=== PATIENT | female | born 1995 | race Two or more races ===

== ENCOUNTER 2025-01-20 11:46 | Observation (INO) | payer MEDICAID, SELFPAY ==
[2025-01-20 11:53] VITALS: BP 120/75; PULSE 82
[2025-01-20 12:19] LABS: ROM Kit Lot # 57807112; ROM Swab Mixed By: HILEL; Swb Mxed in Solvent 1 min? Yes
[2025-01-20 12:20] LABS: Rupture of Fetal Membranes Negative (Negative)
[2025-01-20 12:27] VITALS: BP 120/75; PULSE 82; RESP 16; RESP 97; TEMP 36.4; O2SAT 97; BMI 34.4
--- NOTE | 2025-01-20 13:26 | ESPR_ITS ---
Documentation for date of: 01/20/25 OB Labor Progress Note Assessment and Plan Comments: Evie is a 29yo with SIUP at 35+wk presenting to L&D, referred by CNM in clinic, for vaginal leakage of fluid. She endorses that she has had similar leakage vs vaginal discharge since the start of , though it's slightly more lately. No obvious gush. Not needing a liner or pad. She notes no painful/regular ctx, no vaginal bleeding. Normal movement. Current : This has been uncomplicated, she has had regular OB care with [facility] Previous pregnancies: history of 1 PTD and 3 term svds, hx of hemorrhage x3 with transfusion, obesity, depression and DV ROS negative other than what was described above. Vitals wnl, afebrile General: well developed, well nourished, no acute distress, conversant Cardiac: normal heart rate Lungs: breathing without distress Abdomen: soft, gravid, non-tender, no rebound or guarding Extremities: no pain with palpation of calves NST: Reactive, +accels, no decels, mod sidney [place]: no regular ctx pattern Bedside ultrasound performed by Dr. Chin: SIUP with cephalic presentation, +FCA, active FM, posterior placenta, SHARON 10cm Labs: AmniSure ROM Test: Negative Assessment: Evie is a 29yo with SIUP at 35+wk with no evidence of ROM. Vitals wnl, benign exam. Reassuring status based on NST/SHARON (modified BPP). Plan: -Discussed findings and diagnosis with patient, answered all questions to her apparent satisfaction -Continue routine follow up with CNM within 1 week -Discussed return precautions at length. Specifically discussed that if she feels leakage again when she goes home, to place a panty liner or pad on and walk around. If she begins soaking into the liner/pad, she should return. Isabel Chin MD
== END 2025-01-20 13:35 | disposition home or self-care (01) ==
PROVIDERS: Admitting Provider Obstetrics & Gynecology; Visit Provider Obstetrics & Gynecology
DX: Z34.83 Encounter for supervision of other normal pregnancy, third trimester (principal); Z3A.35 35 weeks gestation of pregnancy
CPT/HCPCS: 59025; 59899; 84112

== ENCOUNTER 2025-02-15 11:38 | Inpatient (IN) | payer MEDICAID, SELFPAY ==
[2025-02-15] VITALS (84 sets, daily range): BP systolic 121–153; BP diastolic 62–92; PULSE 64–103; RESP 16–100; TEMP 36.4–37.3; O2SAT 93–100; BMI 34.4
--- NOTE | 2025-02-15 14:06 | ESHP_ITS ---
Documentation for date of: 02/15/25 OB Labor/Induct. HPI History of Present Illness Chief complaint: 29 y/o 39w 3d presents to L&D in labor at 4 cm mercedes : 5 Para: 4 Term pregnancies: 3 pregnancies: 1 Living children: 4 History of Abortions: Spontaneous and Elective: 0 History of Vaginal deliveries: 4 History of sections: No History of : No Date of last menstrual period: 05/15/25 MIKY: 02/19/25 Gestational Age (weeks): 39 Gestational Age (days): 3 Gestational age based on last menstrual period: -12 History of present illness: 29 y/o 39w 3w presents to L&D in labot at 4 cm vertex, mercedes with a bulging bag. GBS is neg. has been uncomplicated. Pt has a hx of nvdx4 no complications. EFW 3400g History of Present Dating criteria: LMP confirmed by 1st trimester US Adequate Care: Yes Ultrasounds: normal 1st trimester US and normal mid trimester US Obstetrical complications: none Medical complications: none Review of Systems Review of Systems Systems Reviewed: All systems reviewed, normal except as documented Past Medical History Surgical History SURGICAL: Negative Section Meds Home Medications and Allergies Home Medications ?Medication ?Instructions ?Recorded ?Confirmed ?Type vits no.130-ferrous fum 1 tab PO QDAY 5 02/15/25 History 27 mg iron-folic acid 800 mcg tablet ( Vitamin) Allergies Allergy/AdvReac Type Severity Reaction Status Date / Time No Known Allergies Allergy Verified 02/15/25 11:52 OB Exam Physical Exam Vital signs: Temp Pulse Resp BP Pulse Ox O2 Del Method 98.2 F 79 20 121/83 99 Room Air 02/15/25 12:36 02/15/25 12:36 02/15/25 12:36 02/15/25 12:36 02/15/25 12:26 02/15/25 11:45 Constitutional Constitutional: mild distress (Secondary to painful contractions) Routine HEENT Exam Head: Present normocephalic and atraumatic Eye: Present EOMI, PERRL and normal accommodation ENT: Present mucous membranes moist Routine Neck Exam Neck: Present full ROM Routine Respiratory Exam Respiratory: Absent respiratory distress Routine Cardiovascular Exam Cardiovascular: Present RRR Routine Abdominal Exam Abdominal: Present soft and normoactive bowel sounds Comments: Gravid Uterus EFW 3400g Routine Exam External: Present normal urethra appearance; Absent lesions Detailed Labor and Delivery Exam Dilation (cm): 4 Effacement (%): 80 Cervix position: posterior station: -2 Consistency: soft Presentation: Vertex Membranes: intact Baseline heart rate: 125 monitor accelerations: 15x15 monitor decelerations: None termite control servicer variability: Moderate (11-25) Contraction frequency (min): 3-4 Routine Extremities Exam Extremities: Present full ROM Routine Back/Spine/Pelvis Exam Back/Spine: Present full ROM Routine Skin Exam Skin: Present intact, dry and warm Routine Neurological Exam Neurological: Present alert, oriented X3 and CN II-XII intact Routine Psychiatric Exam Psychiatric: Present normal affect and normal thought process OB Results Labs 02/15/25 14:15 OB Assessment & Plan Assessment and Plan (1) Normal labor: Status: Acute (2) with 39 completed weeks gestation: Status: Acute Additional Plan Induction method: none Plan: augmentation, anticipate NVD and consult prce Additional Plan Comment: Routine admit orders Orders 2 units of pRBs on hold and PPH meds at bedside Start 2nd IV Continuous EFM
[2025-02-15 14:36] LABS: Basophils % (Auto) 0 % (0-2.5); Eosinophils % (Auto) 0 % (0-10); Hematocrit 31.5 % (36.0-46.0); Hemoglobin 10.2 g/dL (12.0-16.0); Immature Granulocytes % (Auto) 1 % (0-0); Immature Granulocytes Auto 0.03 Thou/mm3 (0.00-0.00); Lymphocytes # (Auto) 1.6 Thou/mm3 (1.0-4.8); Lymphocytes % (Auto) 24 % (10-50); Mean Corpuscular HGB Conc 32.4 g/dl (31.0-37.0); Mean Corpuscular Hemoglobin 26.6 pg (25.0-35.0); Mean Corpuscular Volume 82 fL (80-100); Monocytes # (Auto) 0.3 Thou/mm3 (0.0-0.8); Monocytes % (Auto) 5 % (0-12); Neutrophils # (Auto) 4.7 Thou/mm3 (1.8-7.7); Neutrophils % (Auto) 70 % (37-80); Nucleated Red Blood Cell % 0 /100 WBC (0); Platelet Count 142 Thou/mm3 (140-440); RDW Standard Deviation 45.1 fL (36.4-46.3); Red Blood Count 3.84 Miln/mm3 (4.00-5.20); White Blood Count 6.7 Thou/mm3 (3.6-11.0)
[2025-02-15 15:20] LABS: Syphilis Nonreactive (Nonreactive)
--- NOTE | 2025-02-15 16:01 | PD.LDPN ---
Documentation for date of: 02/15/25 OB Labor Progress Note Pain Control Pain control: tolerating well Pelvic Exam Dilation (cm): 5 Effacement (%): 80 station: 0 Amniotic membrane status: Ruptured (AROM clear fluids) Contractions Monitor mode: External Contraction frequency: 3-5 Contraction duration: 40-60 Contraction intensity: Moderate Status status: Category l Assessment and Plan Assessment: other (Labor) Plan OB labor note: continuous present management Comments: AROM performed - clear fluids If contractions space out, start pitocin per protocol Anticipate
[2025-02-15] MEDS: OXYTOCIN in NS 30 units 30 UNIT/500 ML BAG IV (16:58)
[2025-02-15] MEDS: fentaNYL CIT INJ 50 mCg/ML AMP 2ML 100 MCG IV ×2 (19:03→20:18)
--- NOTE | 2025-02-15 19:56 | PD.LDPN ---
Documentation for date of: 02/15/25 OB Labor Progress Note Pain Control Pain control: tolerating well Pelvic Exam Dilation (cm): 8.5 Effacement (%): 100 station: +1 Amniotic membrane status: Ruptured (AROM clear fluids) Contractions Monitor mode: External Contraction frequency: 2-3 Contraction duration: 40-60 Contraction phase: Contraction Contraction intensity: Strong Status status: Category l Assessment and Plan Assessment: active labor Plan OB labor note: continuous present management Comments: Pt is progressing, much more uncomfortable Anticipate
[2025-02-15] MEDS: OXYTOCIN in NS 20 units 20 UNIT/1,000 ML BAG 125 UNIT IV (20:10)
[2025-02-15] MEDS: TRANEXAMIC ACID 1,000 MG IVPB 1,000 MG/100 ML BAG 200 MG IV ×2 (20:15→21:50)
[2025-02-15] MEDS: METHYLERGONOVINE INJ 0.2 MG/ML VIAL IM (20:17)
--- NOTE | 2025-02-15 20:29 | OBDSUM_ITS ---
Data (Goss) Data Hx Section: No Maternal Blood Type: O Pos Rubella Titre: Positive RPR: Non-reactive Labs: Negative: RPR, Hepatitis B, HIV, Chlamydia, Gonorrhea and Group Beta Strep and Unknown: Herpes Type 1 and Herpes Type 2 : 5 Para: 4 Term: 3 : 1 Livin Abortions: Spontaneous & Theraputic: 0 Delivery Data (Goss) Labor Data Initiation of labor: Augmentation Induction/Augmentation Agent: Pitocin and Artificial ROM ROM date: 02/15/25 ROM time: 16:00 Amniotic membrane rupture type: Artificial Amniotic fluid description: Clear Delivery Data EDC: 02/19/25 EDC calculated by:: LMP/early US confirmation Onset of labor date: 02/15/25 Onset of labor time: 15:00 Complete dilation date: 02/15/25 Complete dilation time: 20:02 [place] delivery date: 02/15/25 [place] delivery time: 20:03 Gestational age (weeks): 39 Gestational age (days): 3 Placenta delivery date: 02/15/25 Placenta delivery time: 20:10 Stage 1 total time: Labor - Stage 1 Duration 5 hours and 2 minutes Delivered by: Stacey Lieberman Delivery nurse: davon Professional Services Specialist at delivery: No Support person(s) at delivery: FOB Delivery Method Delivery: Vaginal Delivery Type: Primary Presentation: Vertex Position: OA Anesthesia Type Primary Anesthesia: None Secondary Anesthesia: None Delivery Room Medications Other Intrapartum Medications: No Post Delivery Medications: Antibiotics Post Delivery Medications N/A: Yes Placenta Placenta Delivery: Spontaneous Placenta Cultures Obtained: No Placenta Sent for Examination: No Cord Sample: Cord Blood Obtained EBL Estimated blood loss (ml): 1,000 Umbilical Cord Umbilical Vessels: 3 Nuchal Cord: x1 Tightly Body Cord: Not Applicable Additional Procedures AROM was performed around 1604 hours later patient was complete and after couple pushes had an of a viable female . Infant head delivered with a tight nuchal cord easily reduced. Anterior shoulder delivered with gentle downward traction subsequent deliver the posterior shoulder and the body without complications. Infant placed on mother's abdomen vigorous cry upon delivery. Cord was clamped. Cut by FOB. Cord blood obtained. Three-vessel cord noted. Placenta expelled spontaneously and intact. No lacerations noted. Perineum intact. Patient has considerable amount of bleeding she had a hemorrhage. IV Pitocin given TXA x 2 given rectal Cytotec given 1 dose of Methergine given patient will continue on IV Pitocin. Isaac العراقي used and emptied bladder only 50cc removed. Will plan to give her 2 g Ancef x 1 due to manual vigorous fundal massage and removal of clots from the posterior fornix. EBL is 1000. Sponge and needle count correct. Mother and baby stable, skin to skin and bonding in LDR. Will do a CBC now and a CBC in 6 hours. Data (Goss) [place] Data 's gender: Female Identification band number: [id number] weight (gms): 3320 g Weight (pounds): 7 lbs and 5.1 ozs 1 minute: 8 5 minutes: 9
[2025-02-15] MEDS: ceFAZolin/D5W 2 GM IV 2 GM/100 ML BAG IV (20:53)
[2025-02-15 21:07] LABS: Basophils % (Auto) 0 % (0-2.5); Eosinophils % (Auto) 0 % (0-10); Hematocrit 31.3 % (36.0-46.0); Hemoglobin 10.2 g/dL (12.0-16.0); Immature Granulocytes % (Auto) 0 % (0-0); Immature Granulocytes Auto 0.05 Thou/mm3 (0.00-0.00); Lymphocytes # (Auto) 0.8 Thou/mm3 (1.0-4.8); Lymphocytes % (Auto) 7 % (10-50); Mean Corpuscular HGB Conc 32.6 g/dl (31.0-37.0); Mean Corpuscular Hemoglobin 26.8 pg (25.0-35.0); Mean Corpuscular Volume 82 fL (80-100); Monocytes # (Auto) 0.5 Thou/mm3 (0.0-0.8); Monocytes % (Auto) 4 % (0-12); Neutrophils % (Auto) 89 % (37-80); Nucleated Red Blood Cell % 0 /100 WBC (0); Platelet Count 122 Thou/mm3 (140-440); White Blood Count 11.3 Thou/mm3 (3.6-11.0)
[2025-02-15] MEDS: HYDROcodone/APAP 5/325 TABLET 1 TAB PO (21:23)
[2025-02-16] VITALS (14 sets, daily range): BP systolic 118–132; BP diastolic 75–86; PULSE 60–69; RESP 16–20; TEMP 36.4–37.5; O2SAT 97–99
--- NOTE | 2025-02-16 00:02 | PC.NURSE ---
02/15/252019- STRAIGHT CATH BY Eligio TOLEDO CNM OUTPUT 50ML
--- NOTE | 2025-02-16 00:31 | PC.NURSE ---
02/15/252214 ATTEMPTED TO GET PATIENT OUT OF BED TO BATHROOM TO VOID, WHILE PLACING PATIENT ON BEDSIDE PATIENT COMPLAINED OF NAUSEA AND FEELING WEAK . PATIENT APPEARED PALE. RECOMMENDED PATIENT TO REMAIN IN BED AND REST. PERSONAL BELONGINS AND CALL LIGHT WITHIN REACH, PARTNER AT BESIDE.
[2025-02-16] MEDS: HYDROcodone/APAP 5/325 TABLET 1 TAB PO ×5 (01:38→23:55)
--- NOTE | 2025-02-16 01:41 | PC.NURSE ---
0135- Attempted to get patient out of bed to restroom, placed patient in a sitting position on side of bed, patient complained of light headedness and dizziness. Placed patient on bed marie vs steady to bathroom. patient able to void. called Lab to come draw 0200 cbc. lab in route.
[2025-02-16] MEDS: OXYTOCIN in NS 20 units 20 UNIT/1,000 ML BAG 125 UNIT IV (02:00)
[2025-02-16 02:47] LABS: Basophils % (Auto) 0 % (0-2.5); Eosinophils % (Auto) 0 % (0-10); Hemoglobin 8.8 g/dL (12.0-16.0); Immature Granulocytes % (Auto) 0 % (0-0); Immature Granulocytes Auto 0.05 Thou/mm3 (0.00-0.00); Lymphocytes # (Auto) 2.1 Thou/mm3 (1.0-4.8); Lymphocytes % (Auto) 16 % (10-50); Mean Corpuscular HGB Conc 32.6 g/dl (31.0-37.0); Mean Corpuscular Hemoglobin 26.7 pg (25.0-35.0); Mean Corpuscular Volume 82 fL (80-100); Monocytes # (Auto) 0.7 Thou/mm3 (0.0-0.8); Monocytes % (Auto) 6 % (0-12); Neutrophils # (Auto) 10.1 Thou/mm3 (1.8-7.7); Neutrophils % (Auto) 78 % (37-80); Nucleated Red Blood Cell % 0 /100 WBC (0); Platelet Count 158 Thou/mm3 (140-440); RDW Standard Deviation 45.2 fL (36.4-46.3)
--- NOTE | 2025-02-16 06:48 | ESPR_ITS ---
Subjective Subjective Interval history: 29 y/o [place] female had we last saw her in a with a hemorrhage EBL 1000cc. PPD#1 patient is stable and afebrile. She did have some dizziness and has not been up out of bed since delivery. Patient's Hgb was 10.2 to 8.2 with symptoms. Patient was transfused with 1 unit of packed RBCs and another unit of packed RBCs will be given today. Will plan to have her ambulate today and plan to discharge home tomorrow. Exam Vital Signs Temp Pulse Resp BP Pulse Ox O2 Del Method 98.1 F 64 18 128/83 99 Room Air 02/16/25 06:42 02/16/25 06:42 02/16/25 06:42 02/16/25 06:42 02/16/25 06:42 02/16/25 03:33 Constitutional Constitutional: no acute distress Routine HEENT Exam Head: Present normocephalic and atraumatic Eye: Present EOMI, PERRL and normal accommodation ENT: Present mucous membranes moist Routine Neck Exam Neck: Present supple, full ROM and trachea midline Routine Respiratory Exam Respiratory: Present chest non-tender, lungs clear, normal breath sounds and no resp distress Routine Cardiovascular Exam Cardiovascular: Present RRR Routine Abdominal Exam Abdominal: Present soft and normoactive bowel sounds Comments: Uterus nontender Fundus firm Routine Exam Patient deferred: external exam Routine Extremities Exam Extremities: Present full ROM Routine Back/Spine/Pelvis Exam Back/Spine: Present full ROM Routine Skin Exam Skin: Present intact, dry and warm Routine Neurological Exam Neurological: Present alert, oriented X3 and CN II-XII intact Routine Psychiatric Exam Psychiatric: Present normal affect and normal thought process Objective Labs 02/16/25 02:38 Labs: Laboratory Results - last 24 hr 02/15/25 02/15/25 02/16/25 14:15 20:54 02:38 WBC 6.7 11.3 H D 13.0 H RBC 3.84 L 3.80 L 3.30 L Hgb 10.2 L 10.2 L 8.8 L Hct 31.5 L 31.3 L 27.0 L MCV 82 82 82 MCH 26.6 26.8 26.7 MCHC 32.4 32.6 32.6 RDW Std Deviation 45.1 46.0 45.2 Plt Count 142 122 L 158 D Neut % (Auto) 70 89 H 78 Lymph % (Auto) 24 7 L 16 [place] % (Auto) 5 4 6 Eos % (Auto) 0 0 0 Baso % (Auto) 0 0 0 Neut # (Auto) 4.7 10.0 H 10.1 H Lymph # (Auto) 1.6 0.8 L 2.1 [place] # (Auto) 0.3 0.5 0.7 Eos # (Auto) 0.0 0.0 0.0 Baso # (Auto) 0.0 0.0 0.0 Immature Gran # (Auto) 0.03 H 0.05 H 0.05 H Absolute Nucleated RBC 0.00 0.00 0.00 Immature Gran % 1 H 0 0 Nucleated RBC % 0 0 0 Syphilis Serology Nonreactive Blood Type O Positive Antibody Screen NEGATIVE Crossmatch See Detail Blood Bank Wristband ID Yes Assessment & Plan Problem List (1) Normal spontaneous vaginal delivery: Status: Acute (2) hemorrhage, delivered: Status: Acute (3) Normal labor: Status: Inactive Plan Comment Plan Comment: Continue routine care Post CBC 6 hours after the last unit of PRBCs Anticipate discharge home tomorrow Handoff to Dr. Gauthier Time Spent With Patient Time: Total time spent is greater than 50% in coordination of care (as documented) at patient's floor/unit and/or counseling patient: Time with patient: 25 - 35 minutes
[2025-02-16] MEDS: DOCUSATE SOD 100 MG CAPSULE PO (08:32)
[2025-02-16 16:34] LABS: Basophils % (Auto) 0 % (0-2.5); Eosinophils % (Auto) 0 % (0-10); Hemoglobin 11.4 g/dL (12.0-16.0); Immature Granulocytes % (Auto) 0 % (0-0); Immature Granulocytes Auto 0.03 Thou/mm3 (0.00-0.00); Lymphocytes # (Auto) 2.3 Thou/mm3 (1.0-4.8); Lymphocytes % (Auto) 25 % (10-50); Mean Corpuscular HGB Conc 33.5 g/dl (31.0-37.0); Mean Corpuscular Hemoglobin 27.5 pg (25.0-35.0); Mean Corpuscular Volume 82 fL (80-100); Monocytes # (Auto) 0.6 Thou/mm3 (0.0-0.8); Monocytes % (Auto) 6 % (0-12); Neutrophils # (Auto) 6.1 Thou/mm3 (1.8-7.7); Neutrophils % (Auto) 68 % (37-80); Nucleated Red Blood Cell % 0 /100 WBC (0); Platelet Count 133 Thou/mm3 (140-440); RDW Standard Deviation 44.4 fL (36.4-46.3); Red Blood Count 4.14 Miln/mm3 (4.00-5.20)
[2025-02-17 04:00] VITALS: BP 115/75; PULSE 69; RESP 18; TEMP 36.4; O2SAT 98
[2025-02-17 08:00] VITALS: BP 131/87; PULSE 62; RESP 17; O2SAT 98
[2025-02-17] MEDS: DOCUSATE SOD 100 MG CAPSULE PO (08:20)
[2025-02-17] MEDS: IBUPROFEN TAB 400 MG TABLET 800 MG PO (08:20)
--- NOTE | 2025-02-17 08:26 | ESPR_ITS ---
Subjective Subjective Interval history: Patient is a 29-year-old -0-0-5 day #2 status post vaginal delivery by Stacey complicated by hemorrhage and 2 units of packed red blood cells. Today patient is reporting cramping. She is interested in a tubal ligation and will schedule this through [facility]. She request Helena to go home on. She is breast and bottlefeeding. She is resting comfortably in bed with father the baby at bedside. Exam Vital Signs Temp Pulse Resp BP Pulse Ox O2 Del Method 97.6 F 69 18 115/75 98 Room Air 02/17/25 04:00 02/17/25 04:00 02/17/25 04:00 02/17/25 04:00 02/17/25 04:00 02/17/25 04:00 Narrative Exam Fundus firm nontender extremities show no significant edema or erythema. Objective Labs 02/16/25 16:10 Labs: Laboratory Results - last 24 hr 02/15/25 02/16/25 14:15 16:10 WBC 9.0 RBC 4.14 Hgb 11.4 L D Hct 34.0 L MCV 82 MCH 27.5 MCHC 33.5 RDW Std Deviation 44.4 Plt Count 133 L Neut % (Auto) 68 Lymph % (Auto) 25 [place] % (Auto) 6 Eos % (Auto) 0 Baso % (Auto) 0 Neut # (Auto) 6.1 Lymph # (Auto) 2.3 [place] # (Auto) 0.6 Eos # (Auto) 0.0 Baso # (Auto) 0.0 Immature Gran # (Auto) 0.03 H Absolute Nucleated RBC 0.00 Immature Gran % 0 Nucleated RBC % 0 Crossmatch See Detail Assessment & Plan Problem List (1) hemorrhage, delivered: Status: Acute Assessment and plan: Patient's hemoglobin is stable. It went from 10.2 down to 8.8 she was given 2 units of blood and now her hemoglobin is 11.4. She is stable to go home. Strict instructions of continued evaluation of bleeding given. Patient has grand multipara and she has had hemorrhages with a few of her deliveries. She does want to pursue tubal ligation I encouraged her to call the office and have a consult with Dr. Ames to get this scheduled at 8 weeks . (2) Normal labor: Status: Inactive (3) Term delivered: Status: Acute Assessment and plan: instructions given including pelvic rest x 6 weeks no intercourse tampons or douching x 6 weeks. Time Spent With Patient Time: Total time spent is greater than 50% in coordination of care (as documented) at patient's floor/unit and/or counseling patient: Time with patient: less than 15 minutes
--- NOTE | 2025-02-17 08:30 | PD.LDDS ---
DS: Providers Provider Date of admission: 02/15/25 13:58 Primary care physician: Physician No Primary/Family Admitting Provider: Daryl Rivera MD Attending Provider on Admission: Jethro Gauthier MD Consults: 02/15/25 20:42 Referral Routine Comment: Attending Provider on DC: Stacey Arreola MD ([facility]) Discharging Provider: Stacey Arreola MD ([facility]) Anticipated date of discharge: 02/17/25 DS: Diagnosis Discharge Diagnosis (1) Term delivered: Status: Acute Assessment & Plan: Pelvic rest x 6 weeks no intercourse tampons douching bathtubs or swimming pools x 6 weeks (2) hemorrhage, delivered: Status: Acute Assessment & Plan: Patient's status posttransfusion of 2 units packed red blood cells. She will keep an eye on her bleeding . She will call Stacey and Dr. Ames if there is any problems. She does desire tubal ligation and she will follow-up with [facility] for a consult. Problem List Completed Was Problem List Reviewed/Reconciled?: Yes Summary/Hosp Course Brief History: 29 y/o 39w 3w [facility], mercedes with a bulging bag. GBS is neg. has been uncomplicated. Pt has a hx of nvdx4 no complications. EFW 3400g The patient was admitted by Stacey and underwent a vaginal delivery approximately 7 PM on 02/15/2025. Please see delivery notes for further details. This was complicated by a brisk hemorrhage which was relieved by medications and fundal massage, and manual extraction of clots at bedside by Stacey. The patient eventually got transfused 2 units of blood. She did stay 2 days and was discharged home day #2 in stable condition. Peripartum Data Delivery Method: Normal Vaginal Delivery Episiotomy Description: None Laceration Description: see Delivery Summary complications: transfusion and uterine atony Status at Discharge Cognitive/behavioral status at discharge: Alert and oriented x 3 in no apparent distress Functional status at discharge: independent ambulation Overall status at discharge: patient is progressing back to baseline Time Spent with Patient Time attestation: Total time spent providing and/or coordinating discharge services: Time spent: Less than 30 minutes Specific discharge activities: Pelvic rest x 6 weeks no intercourse tampons douching x 6 weeks Exam Vital Signs Temp Pulse Resp BP Pulse Ox O2 Del Method 97.6 F 62 17 131/87 H 98 Room Air 02/17/25 04:00 02/17/25 08:00 02/17/25 08:00 02/17/25 08:00 02/17/25 08:00 02/17/25 08:00 Narrative Exam Fundus firm nontender extremities show no significant edema or erythema. Discharge Plan Plan Patient Disposition: HOME (Self Care) Disposition Comment: Stable Patient condition on transfer: Stable Prescriptions/Referrals Prescriptions/Med Rec: New ibuprofen 800 mg tablet 800 mg PO Q6H MDD 4 PRN (Reason: pain) Qty: 90 0RF docusate sodium [Colace] 100 mg capsule 100 mg PO BID Qty: 60 0RF lanolin 50 % ointment 1 applic topical TID PRN (Reason: skin irritation) Qty: 15 0RF hydrocodone-acetaminophen 5-325 mg Tablet 2 tab PO Q6HR MDD 6 PRN (Reason: Patient rated pain 9 to 10) Qty: 20 0RF hydrocodone-acetaminophen 5-325 mg Tablet 1 tab PO Q4HR MDD 6 PRN (Reason: Patient rated pain 7 to 8) Qty: 20 0RF Continued Vitamin 27 mg iron- 800 mcg tablet 1 tab PO QDAY Referrals: No Primary/Family,Physician [Primary Care Provider] - Patient/Caregiver Discharge Instructions Meds to Beds: No Discharge Activity: activity as tolerated Other Discharge Activity Instructions:: Follow-up with Stacey Lieberman CNM in 3 weeks Other Discharge Diet Instructions: General Diet drink lots of water Education Materials: After a Vaginal , After Delivery [place] Concerns Print Language: [place] Activity Restrictions/Additional Instructions: Pelvic rest x 6 weeks no intercourse tampons douching x 6 weeks Stand Alone Forms: Ashley Award Info., Patient Portal Info Letter Discharge Order Discharge Orders: Discharge (Routine); Ordered 02/17/25 Ordered By: Stacey Arreola ([facility]) Planned Discharge Date 02/17/25
--- NOTE | 2025-02-17 14:44 | PC.NURSE ---
two IV removed at time of discharge, catheters intact, pressure applied, pt tolerated well.
== END 2025-02-17 13:35 | disposition home or self-care (01) | DRG 560 ==
LOC: S4SX 16:29 → S4NX 02-16 01:54
PROVIDERS: Nurse Practitioner Women's Health; Admitting Provider Student in an Organized Health Care Education/Training Program; Visit Provider Specialist
DX: O69.1XX0 Labor and delivery complicated by cord around neck, with compression, not applicable or unspecified (principal); O72.1 Other immediate postpartum hemorrhage; Z37.0 Single live birth; Z3A.39 39 weeks gestation of pregnancy
CPT/HCPCS: 36415; 59025; 59409; 85025; 86780; 86850; 86900; 86901; 86923; 94762; J0689; J2210; J2590; J3010; J3490; P9016; A9270

== ENCOUNTER 2025-02-25 16:14 | Emergency (ER) | payer MEDICAID, SELFPAY ==
[2025-02-25 17:20] VITALS: BP 132/88; PULSE 72; RESP 18; TEMP 36.9; O2SAT 98; BMI 28.4
--- NOTE | 2025-02-25 17:37 | XR_ITS ---
Examination: Pelvic ultrasound, transabdominal, complete Technique: Transabdominal ultrasound of the pelvis performed using grayscale imaging Date and time of exam: February 25, 2025 1859 hours INDICATIONS: Post this week, severe vaginal bleeding beginning several hours ago FINDINGS: Uterus 9.8 cm Thickened endometrial stripe with fluid consistent with retained products Right ovary 2.3 cm arterial flow Left ovary 2.2 cm arterial flow IMPRESSION: Recommend transvaginal pelvic sonography follow-up to confirm retained products of conception
--- NOTE | 2025-02-25 17:38 | PD.EDRME ---
Rapid Medical Screening Exam RME Arrival date/time: 02/25/25 16:14 This is a 29-year-old female that comes in with vaginal bleeding. Patient is 9 days . Patient states since 10 this morning she has had 4 fully saturated pads full of blood. Patient states she had already stopped bleeding and then started bleeding again. Patient having some right lower pelvic pain. Patient states she had hemorrhage while she was in the hospital. I have greeted and performed a focused initial assessment of this patient. Initial appropriate labs ordered at this time. A comprehensive ED assessment and evaluation of the patient and analysis of all test and completion of medical decision making process will be conducted by additional ED provider. Chief Complaint: OB/Uterine Contractions Time Seen by Provider: 02/25/25 17:15 Vital signs: Vital Signs Temperature 98.4 F 02/25/25 17:20 Pulse Rate 72 02/25/25 17:20 Respiratory Rate 18 02/25/25 17:20 Blood Pressure 132/88 H 02/25/25 17:20 Pulse Oximetry (%) 98 02/25/25 17:20 Oxygen Delivery Method Room Air 02/25/25 17:20
[2025-02-25 18:42] LABS: Alanine Aminotransferase 51 U/L (10-49); Albumin, Serum 4.2 gm/dL (3.5-5.0); Albumin/Globulin Ratio 1.5 (1.2-2.2); Alkaline Phosphatase 130 U/L (46-116); Anion Gap 8 (7-16); Aspartate Amino Transferase 50 U/L (0-34); BUN/Creatinine Ratio 11 Ratio (12-20); Basophils % (Auto) 1 % (0-2.5); Bilirubin,Total 0.4 mg/dL (0.3-1.2); Blood Urea Nitrogen 8 mg/dL (9-23); Calcium 8.9 mg/dL (8.3-10.6); Calcium (Corrected) 8.9 mg/dL (8.5-10.1); Chloride 105 mMol/L (98-107); Creatinine (Component) 0.7 mg/dL (0.6-1.3); Eosinophils # (Auto) 0.2 Thou/mm3 (0.0-0.5); Eosinophils % (Auto) 2 % (0-10); Estimated Creatinine Clearance 119.8 mL/min (>60); Globulin 2.8 gm/dL (2.3-3.5); Glucose 87 mg/dL (74-106); Hematocrit 39.7 % (36.0-46.0); Hemoglobin 12.9 g/dL (12.0-16.0); Immature Granulocytes % (Auto) 0 % (0-0); Immature Granulocytes Auto 0.03 Thou/mm3 (0.00-0.00); Lymphocytes # (Auto) 1.8 Thou/mm3 (1.0-4.8); Lymphocytes % (Auto) 21 % (10-50); Mean Corpuscular HGB Conc 32.5 g/dl (31.0-37.0); Mean Corpuscular Hemoglobin 27.2 pg (25.0-35.0); Mean Corpuscular Volume 84 fL (80-100); Monocytes # (Auto) 0.4 Thou/mm3 (0.0-0.8); Monocytes % (Auto) 4 % (0-12); Neutrophils # (Auto) 6.4 Thou/mm3 (1.8-7.7); Neutrophils % (Auto) 72 % (37-80); Nucleated Red Blood Cell % 0 /100 WBC (0); Osmolality,Calculated 269 (275-295); Platelet Count 244 Thou/mm3 (140-440); Potassium 3.9 mMol/L (3.4-5.1); RDW Standard Deviation 46.7 fL (36.4-46.3); Red Blood Count 4.75 Miln/mm3 (4.00-5.20); Sodium 136 mMol/L (136-145); White Blood Count 8.8 Thou/mm3 (3.6-11.0); eGFR > 60 See Note
[2025-02-25 19:51] LABS: Beta HCG,Quantitative 39 mIU/mL (<5.0)
[2025-02-25 20:16] VITALS: BP 138/89; PULSE 62; RESP 16; TEMP 36.9; O2SAT 99
[2025-02-25 20:24] LABS: Collection Type, Urine Voided; Squamous Epithelial Cell,Urine 0 /hpf (0-5)
--- NOTE | 2025-02-25 20:32 | XR_ITS ---
Examination: Transvaginal ultrasound of the pelvis, complete Technique: Transvaginal sonographic images pelvis performed using begum scale imaging Exam date and time: February 25, 2025 2116 hours INDICATIONS: Hemorrhage post delivery requiring blood transfusion, right-sided pelvic fullness beginning 2 days ago FINDINGS: Uterus 11.2 cm with no uterine mass Thickened endometrium with fluid suspicious for retained products of conception Ovaries obscured by bowel gas. IMPRESSION: Suspicious for retained products of conception, recommend short term follow-up transvaginal pelvic sonography
[2025-02-25 20:47] LABS: Bilirubin,Urine Negative (Negative); Blood,Urine 3+ (Negative); Clarity,Urine Clear (Clear/Hazy); Color,Urine Lt-Yellow (Lt Yel-Yel); Culture Indicated,Urine Yes; Glucose, Urine Negative (Negative); Ketones,Urine Negative (Negative); Leukocyte Esterase,Urine Positive (Negative); Nitrite,Urine Negative (Negative); Protein,Urine Negative (Neg - Trace); RBC,Urine 105 /hpf (0-3); Specific Gravity,Urine 1.015 (1.001-1.035); Urobilinogen,Urine Negative mg/dL (0.0-1.0); WBC,Urine 64 /hpf (0-5)
--- NOTE | 2025-02-25 23:00 | PD.EDPREG ---
ED OB Contraction Preg RMI/HPI General Chief complaint: OB/Uterine Contractions Stated complaint: POST HEMMORRHAGE/PAIN X 10 DAYS Time Seen by Provider: 02/25/25 17:15 Arrival date/time: 02/25/25 16:14 RME / HPI RME / HPI Narrative: 02/25/25 16:14 This is a 29-year-old female that comes in with vaginal bleeding. Patient is 9 days . Patient states since 10 this morning she has had 4 fully saturated pads full of blood. Patient states she had already stopped bleeding and then started bleeding again. Patient having some right lower pelvic pain. Patient states she had hemorrhage while she was in the hospital. I have greeted and performed a focused initial assessment of this patient. Initial appropriate labs ordered at this time. A comprehensive ED assessment and evaluation of the patient and analysis of all test and completion of medical decision making process will be conducted by additional ED provider. Dr. Plasencia?s Main ED Evaluation: 29yo female presents to the ED for a chief complaint of vaginal bleeding. Patient states she initially had continued vaginal bleeding after she was discharged on 02/17/25. Patient states she stopped bleeding from 02/22/25-02/24/25, reporting she started having vaginal bleeding again this morning. She states she soaked 4 pads from [id number]. Patient endorses having right lower/flank bloating. She denies any N/V, fever, chills, dysuria or any other associated symptoms. NKA. Related Data Home Medications ?Medication ?Instructions ?Recorded ?Confirmed vits no.130-ferrous fum 1 tab PO QDAY 01/20/25 02/15/25 27 mg iron-folic acid 800 mcg tablet ( Vitamin) Previous Rx's ?Medication ?Instructions ?Recorded docusate sodium 100 mg capsule 100 mg PO BID #60 caps 02/16/25 (Colace) ibuprofen 800 mg tablet 800 mg PO Q6H PRN pain #90 tabs 02/16/25 lanolin 50 % topical ointment 1 applic topical TID PRN skin 02/16/25 irritation #15 tubes methylergonovine 0.2 mg tablet 0.2 mg PO QID 24 hours #4 tabs 02/25/25 Allergies Allergy/AdvReac Type Severity Reaction Status Date / Time No Known Allergies Allergy Verified 02/25/25 16:17 Review of Systems Review of Systems Systems Reviewed: All systems reviewed, normal except as documented Past Medical History Past Medical History NEUROLOGIC: Negative Neurological Disorders or Seizures CARDIAC: Negative Cardiac Disorders or Congestive Heart Failure RESPIRATORY: Negative Chronic Obstructive Pulmonary Disease (COPD) or Asthma GASTROINTESTINAL: Positive Gastrointestinal Disorders and Gall Bladder Disease; Negative Hepatitis GENITOURINARY: Negative Genitourinary Disorders or Renal Disease REPRODUCTIVE: Positive Previous Pregnancies; Negative Endometriosis, Pelvic Inflammatory Disease or Uterine Prolapse MUSCULOSKELETAL: Negative Musculoskeletal Disorders ENDOCRINE: Negative Endocrine Disorders, Diabetes Mellitus Type 1 or Diabetes Mellitus Type 2 HEMATOLOGIC: Positive Blood Disorders and Anemia; Negative Sickle Cell Disease PSYCHO/SOCIAL: Positive Depression and Anxiety OTHER HISTORY: Positive Hospitalization, Blood Transfusions and Chicken Pox; Negative Autoimmune Disease, Down Syndrome, Developmental Delay, Shingles, Falls, Blood Transfusion Reaction, Anesthesia Reactions, Organ Transplant, Chemotherapy, Radiation Therapy, Hyperbaric Therapy, MRSA, VRSA, Vancomycin-Resistant Enterococci, Human Immunodeficiency Virus (HIV), Measles, Mumps, Rubella (Faroese Measles), Pertussis, Clostridium Difficile or Cancer Family History FAMILY HISTORY: Negative Family Psychiatric Problems, Family Respiratory Disorders, Family Cardiac Disorders, Family Gastrointestinal Problems, Family Cancer, Family Surgery or Family Anesthesia Reaction Surgical History SURGICAL: Negative Section or Organ Transplant Social History SMOKING STATUS: Never smoker SECOND HAND EXPOSURE: No ED Exam Narrative Physical exam: GENERAL APPEARANCE: alert and oriented x 4, well-developed, well-nourished, no acute distress VITALS: All vitals were reviewed and the pulse ox is 99% on room air, which is normal according to my interpretation. HEENT: Normocephalic, atraumatic; pupils equal, round, reactive to light; EOMI; mucous membranes pink, moist; oropharynx clear NECK: Supple LUNGS: CTABL; no wheezes, no rales, no rhonchi HEART: Regular rate, regular rhythm; normal S1, S2; no murmurs ABDOMEN: non distended; normal BS; soft, no tenderness, no guarding, no rebound; no masses, no organomegaly, no hernia BACK: no CVA tenderness EXTREMITIES: atraumatic; no edema NEUROLOGIC: awake; alert and oriented x4; cranial nerves II-XII grossly intact; no focal sensory or motor deficits PSYCHIATRIC: appropriate mood and affect SKIN: warm, dry, normal color; no rashes Course Quality Measures none Orders Category Date Time Status US pelvic complete Stat Exams 02/25/25 17:37 Completed US transvaginal Stat Exams 02/25/25 20:32 Completed Beta HCG,Quantitative Stat Lab 02/25/25 18:13 Completed CBC Stat Lab 02/25/25 18:13 Completed Comprehensive Metabolic Panel Stat Lab 02/25/25 18:13 Completed Type and Screen Stat Lab 02/25/25 18:13 Completed Urinalysis, C/S if Indicated Stat Lab 02/25/25 20:09 Completed Urine Culture Stat Lab 02/25/25 20:09 Received Methylergonovine [Methergine] Med 02/25/25 23:12 Discontinued 0.2 mg PO X1 ONE Vital Signs Vital signs: Vital Signs Temperature 98.4 F 02/25/25 17:20 Pulse Rate 72 02/25/25 17:20 Respiratory Rate 18 02/25/25 17:20 Blood Pressure 132/88 H 02/25/25 17:20 Pulse Oximetry (%) 98 02/25/25 17:20 Oxygen Delivery Method Room Air 02/25/25 17:20 OB/Uterine Contractions MDM Narrative MDM Narrative:: Scribe Attestation: 02/25/25 - Criss Barboza am scribing for and in the presence of Dr. Plasencia. Patient data External records reviewed:: [facility] previous records (Per chart review, patient delivered her on 02/15/25.) Clinical information provided by:: patient Social determinants that could affect healthcare access:: none Patient has the following chronic illnesses:: none How is presenting disease/condition affected by chronic disease/condition?: no chronic disease Evaluation data The following diagnostics were reviewed and interpreted by me:: lab results and radiology exam(s) Lab and/or radiology exams considered but not ordered:: none Interpretation Summary: CBC is normal, Beta HCG is 39, UA shows 105 RBCs and 64 WBCs. ------- [facility] Report Signed Patient: SARIAH MCCOY [facility] Record#: [id number] Birthdate: 1995 Age/Sex: 29 / F Location: [facility] Attending Dr: Ordering Physician: Marybel Carreno NP Date of Service: 02/25/25 Procedure(s): US pelvic complete Accession Number(s): [id number] cc: Ronnie Salcedo MD; NO PRIMARY/FAMILY,PHYSICIAN; Marybel Carreno NP~ Examination: Pelvic ultrasound, transabdominal, complete Technique: Transabdominal ultrasound of the pelvis performed using grayscale imaging Date and time of exam: February 25, 2025 1859 hours INDICATIONS: Post this week, severe vaginal bleeding beginning several hours ago FINDINGS: Uterus 9.8 cm Thickened endometrial stripe with fluid consistent with retained products Right ovary 2.3 cm arterial flow Left ovary 2.2 cm arterial flow IMPRESSION: Recommend transvaginal pelvic sonography follow-up to confirm retained products of conception Dictated By: Ronnie Salcedo MD Signed By: <Electronically signed by Ronnie Salcedo MD in OV> 02/25/252022 [facility] Report Signed Patient: SARIAH MCCOY [facility] Record#: [id number] Birthdate: 1995 Age/Sex: 29 / F Location: [facility] Attending Dr: Ordering Physician: Ibrahima Plasencia MD Date of Service: 02/25/25 Procedure(s): US transvaginal Accession Number(s): [id number] cc: Ronnie Salcedo MD; NO PRIMARY/FAMILY,PHYSICIAN; Ibrahima Plasencia MD~ Examination: Transvaginal ultrasound of the pelvis, complete Technique: Transvaginal sonographic images pelvis performed using begum scale imaging Exam date and time: February 25, 2025 2116 hours INDICATIONS: Hemorrhage post delivery requiring blood transfusion, right-sided pelvic fullness beginning 2 days ago FINDINGS: Uterus 11.2 cm with no uterine mass Thickened endometrium with fluid suspicious for retained products of conception Ovaries obscured by bowel gas. IMPRESSION: Suspicious for retained products of conception, recommend short term follow-up transvaginal pelvic sonography Dictated By: Ronnie Salcedo MD Signed By: <Electronically signed by Ronnie Salcedo MD in OV> 02/25/25 5584 Medications / Prescriptions Medications or Prescriptions considered but not ordered:: none Medication administrations:: Medication Administration History Discontinued Medications Methylergonovine Maleate (Methylergonovine 0.2 Mg Tablet) 0.2 mg PO X1 ONE Stop: 02/25/25 23:13 see above Consultations Consultation(s) initiated? (list below): Yes Consultation #1 (Physician, Specialty, Details): Discussed case with Dr. Chin from [facility] regarding consultation. Discussed patients ED course, exam findings, labs, and radiology results. She reviewed the patient's ultrasounds herself and does not feel the patient has retained products of conception. States the patient likely has placental involution. Recommends discharging the patient home on methergine 0.2mg PO Q6hr x4 and having the patient follow-up with OB as an outpatient. Time: 23:01 Diagnosis OB Contractions Differential Diagnosis: hemorrhage and other (retained POC, placental involution) Most likely diagnosis given after review of the tests above:: see clinical impression below Admission Indicated Admission indicated?: not indicated Explain why admission is indicated or not indicated:: Admission criteria not met. See above. Admission Request Was there a request for admission?: No Disposition Plan Disposition Plan: Discharge Discharge Attestation Discharge Attestation: The patient and all family members were given an opportunity to ask questions and understood the discharge instructions. Discharge instructions specifically effects, indications for sooner follow up or return to the emergency department, and the expected course of current diagnosis. Patient condition: Stable Discharge Plan Plan Patient Disposition: HOME (Self Care) Discharge Disposition comment: Stable for discharge home Patient condition on transfer: Stable Prescriptions/Referrals Prescriptions/Med Rec: New methylergonovine 0.2 mg tablet 0.2 mg PO QID 1 Days Qty: 4 0RF Continued Vitamin 27 mg iron- 800 mcg tablet 1 tab PO QDAY ibuprofen 800 mg tablet 800 mg PO Q6H MDD 4 PRN (Reason: pain) Qty: 90 0RF docusate sodium [Colace] 100 mg capsule 100 mg PO BID Qty: 60 0RF lanolin 50 % ointment 1 applic topical TID PRN (Reason: skin irritation) Qty: 15 0RF Referrals: [facility]),Stacey Diaz MD [Physician] - In 1 week Problem List Clinical Impression: bleeding Patient/Caregiver Discharge Instructions Discharge Activity: activity as tolerated Education Materials: Hemorrhage Additional Instructions: Please return to the emergency department if you have any worsening or any further medical problems. Otherwise you should follow-up with your primary care doctor within the next several days Please follow-up in Dr. Arreola's office. I provided the contact information for her. Please give her office a call and make a follow-up appointment for the next several days. If you go through 2 pads per hour for 2 hours in a row please return to the ER right away. Also if you have any other concerns or worsening come back to the ER and we will help Print Language: Trinidadian Stand Alone Forms: [facility] Award Info., Patient Portal Info Letter
--- NOTE | 2025-02-25 23:20 | ESCONSULT_ITS ---
CARDIOLOGY TEACHER HPI Data of Consult Primary Care Provider: Physician No Primary/Family Consult Narrative cc:: cc: Meds Home Medications and Allergies Home Medications ?Medication ?Instructions ?Recorded ?Confirmed ?Type vits no.130-ferrous fum 1 tab PO QDAY 5 02/15/25 History 27 mg iron-folic acid 800 mcg tablet ( Vitamin) Allergies Allergy/AdvReac Type Severity Reaction Status Date / Time No Known Allergies Allergy Verified 02/25/25 16:17 Exam - CARDIOLOGY TEACHER Vital Signs Temp Pulse Resp BP Pulse Ox O2 Del Method 98.4 F 62 16 138/89 H 99 Room Air 02/25/25 20:16 02/25/25 20:16 02/25/25 20:16 02/25/25 20:16 02/25/25 20:16 02/25/25 20:16 CARDIOLOGY TEACHER - Results Labs 02/25/25 18:13 02/25/25 18:13 Labs: Short CBC 02/25/25 Range/Units 18:13 WBC 8.8 (3.6-11.0) Thou/mm3 Hgb 12.9 (12.0-16.0) g/dL Hct 39.7 (36.0-46.0) % Plt Count 244 D (140-440) Thou/mm3 BMP 02/25/25 18:13 Sodium 136 Potassium 3.9 Chloride 105 Carbon Dioxide 23.0 BUN 8 L Creatinine 0.7 Glucose 87 Calcium 8.9 Liver Function 02/25/25 Range/Units 18:13 Total Bilirubin 0.4 (0.3-1.2) mg/dL AST 50 H (0-34) U/L ALT 51 H (10-49) U/L Alkaline Phosphatase 130 H (46-116) U/L Albumin 4.2 (3.5-5.0) gm/dL Urine 02/25/25 Range/Units 20:09 Urine Color Lt-Yellow (Lt Yel-Yel) Urine Clarity Clear (Clear/Hazy) Urine pH 6.0 (5.0-7.0) Ur Specific [place] 1.015 (1.001-1.035) Urine Protein Negative (Neg - Trace) Urine Glucose (UA) Negative (Negative) Assessment and Plan Assessment and plan (1) bleeding: Status: Acute Assessment and plan: I spoke to Dr. Ibrahima Plasencia regarding Evie's presentation and workup. In brief, she is a 29yo s/p on 02/15 at term after presenting in labor. Delivery was complicated by PPH related to atony which was treated with uterotonics and 2u pRBCs. She presented to ER with increase in vaginal bleeding. She had tapering and cessation of bleeding but today she had to start using pads again, changing them every couple hours. Not soaking a pad or more per hour. Vitals wnl (pulse 62, bp 138/89, temp 98.4F) Hgb 12.9 which is increased from Hgb 11.4 at time of discharge. WBC count 8.8. Pelvic ultrasound shows concern for possible retained POCs . I reviewed the images and believe the findings are more consistent with some residual clot. I suspect bleeding today is related to normal physiologic occurrence of placental involution. Safe for outpatient management given hemodynamically stable with no evidence of infection. Rx methergine series 0.2mg PO Q6hr x4 doses. Patient to follow up with CNM or OBGYN in office this coming week. Return precautions to be given for bleeding equal to or greater than 2 pads per hour. Isabel Chin MD (2) hemorrhage, delivered: Status: Acute (3) Term delivered: Status: Acute (1) bleeding Qualifiers: hemorrhage type: unspecified Qualified Code(s): O72.1 - Other immediate hemorrhage
[2025-02-25 23:52] VITALS: BP 133/86; PULSE 73
[2025-02-25] MEDS: METHYLERGONOVINE 0.2 MG TABLET PO (23:52)
[2025-02-26 00:01] VITALS: RESP 18
== END 2025-02-26 00:02 | disposition home or self-care (01) ==
PROVIDERS: Nurse Practitioner Family; Physician Assistant; Emergency Provider Emergency Medicine
DX: O72.1 Other immediate postpartum hemorrhage (principal)
CPT/HCPCS: 36415; 76830; 76856; 80053; 81001; 84702; 85025; 86850; 86900; 86901; 87086; 99284; A9270